=== PATIENT | female | born 1945 | race Caucasian/White ===

== ENCOUNTER → 2017-06-07 | Outpatient (CLI) | payer MEDICARE ==
[~2017-06-07] MED LIST: ASCO10004 PO; CALC-55 PO; CALM MAGNESIUM PO; CHOL5000 PO; GLUC1CAP48 PO; MULT-26 PO; None per pt.; VITA400C43 PO; VITAMIN B12 PO
== END | disposition home or self-care (01) ==
LOC: CFH 14:09
PROVIDERS: ATTEND Licensed Practical Nurse
DX: Z13.820 Encounter for screening for osteoporosis (principal); M81.0 Age-related osteoporosis without current pathological fracture; Z78.0 Asymptomatic menopausal state
CPT/HCPCS: 77080

== ENCOUNTER 2020-12-07 09:13 | Outpatient (CLI) | payer MEDICARE ==
[~2020-12-07 09:13] MED LIST changes: +ASCO100018 PO; -ASCO10004 PO
== END 2020-12-07 23:59 | disposition home or self-care (01) ==
LOC: CFH 09:13
PROVIDERS: ATTEND Family Medicine
DX: M85.88 Other specified disorders of bone density and structure, other site (principal); N95.9 Unspecified menopausal and perimenopausal disorder
CPT/HCPCS: 77080